=== PATIENT | male | born 1960 | race Caucasian/White ===

== ENCOUNTER 2020-12-09 11:32 | Emergency (ER) | payer MEDICARE, OTHER ==
[~2020-12-09] VITALS: Ht 180.3 cm; Wt 81.6 kg
[~2020-12-09 11:32] MED LIST: AMITRIPTYLINE100 MG PO; ASPIR 8181 MG PO; LIPITOR TAB 2020 MG PO; LOPRESSOR 25 MG25 MG PO; NITROSTAT0.4 MG SL; NORCO 7.5-3251 EACH PO; PLAVIX 75 MG TA75 MG PO; PROTONIX40 MG PO; PROVENTIL HFA6.7 GM INH; [UNRECOGNIZED DRUG - OTHER] PO
[2020-12-09 13:56] LABS: HEMOGLOBIN 10.4 gm/dl (14.0-17.5); RED BLOOD COUNT 3.53 M/UL (4.20-5.50); WHITE BLOOD COUNT 8.8 K/UL (4.5-11.0)
[2020-12-09 14:20] LABS: BUN/CREATININE RATIO 18 (0-10)
== END 2020-12-09 15:35 | disposition home or self-care (01) ==
LOC: ER1 11:32
PROVIDERS: Physician Assistant
DX: R09.02 Hypoxemia (principal); R05 Cough; E11.9 Type 2 diabetes mellitus without complications; E78.5 Hyperlipidemia, unspecified; K21.9 Gastro-esophageal reflux disease without esophagitis; I10 Essential (primary) hypertension; Z95.1 Presence of aortocoronary bypass graft; Z87.891 Personal history of nicotine dependence; Z89.412 Acquired absence of left great toe
CPT/HCPCS: 36600; 71045; 80053; 82550; 82553; 82803; 83874; 83880; 84484; 85025; 93005; 99285